=== PATIENT | female | born 1990 | race Two or more races ===

== ENCOUNTER 2024-06-21 21:32 | Inpatient (IN) | payer OTHER ==
[2024-06-22 00:21] VITALS: BMI 16.6
[2024-06-22] MEDS ORDERED: BENZONATATE 200 MG CAPSULE PO PRN (00:27)
[2024-06-22] MEDS ORDERED: cloNIDine HCL 0.1 MG TABLET PO PRN (00:27)
[2024-06-22] MEDS ORDERED: LOPERAMIDE HCL 2 MG CAPSULE PO PRN (00:27)
[2024-06-22] MEDS ORDERED: MAG HYDROX/AL HYDROX/SIMETH 30 ML UNIT-DOSE CUP PO PRN (00:27)
[2024-06-22] MEDS ORDERED: METHOCARBAMOL 500 MG TABLET PO PRN (00:27)
[2024-06-22] MEDS ORDERED: MAGNESIUM HYDROX 2400MG/30ML ORAL SUSPENSION 30 ML CUP PO PRN (00:27)
[2024-06-22] MEDS ORDERED: ACETAMINOPHEN 325 MG TABLET (FP) PO PRN (00:27)
[2024-06-22] MEDS ORDERED: hydrOXYzine PAMOATE 25 MG CAPSULE (FP) PO PRN (00:27)
[2024-06-22] MEDS ORDERED: NICOTINE POLACRILEX 4 MG GUM BUC PRN (00:27)
[2024-06-22] MEDS ORDERED: ONDANSETRON *ODT* 4 MG TABLET SL PRN (00:27)
[2024-06-22] MEDS ORDERED: BENZOCAINE/MENTHOL (CHLORASEPTIC ) LOZENGE MM PRN (00:27)
[2024-06-22] MEDS ORDERED: IBUPROFEN 400 MG TABLET (FP) PO PRN (00:27)
[2024-06-22] MEDS ORDERED: BISMUTH SUBSALICYLATE 524 MG/30 ML PO PRN (00:27)
[2024-06-22] MEDS ORDERED: NALOXONE (NARCAN) HCL 4 MG/0.1 ML SPRAY NS PRN (00:27)
[2024-06-22] MEDS ORDERED: diazePAM 5 MG TABLET PO PRN (00:27)
[2024-06-22] MEDS ORDERED: DICYCLOMINE HCL 10 MG CAPSULE PO PRN (00:27)
[2024-06-22] MEDS ORDERED: guaiFENesin 600 MG TABLET.ER (FP) PO PRN (00:27)
[2024-06-22] MEDS ORDERED: POLYETHYLENE GLYCOL (HEALTHYLAX) 3350 17 GM PACKET PO PRN (00:27)
[2024-06-22] MEDS ORDERED: IBUPROFEN 600 MG TABLET (FP) PO ONE (00:36)
[2024-06-22] MEDS ORDERED: methaDONE HCL 10 MG TABLET (FOR DETOX USE ONLY) ONE (00:38)
[2024-06-22 03:23] VITALS: RESP 16
[2024-06-22] MEDS: methaDONE HCL 10 MG TABLET (FOR DETOX USE ONLY) PO ONE (03:29)
[2024-06-22] MEDS: diazePAM 5 MG TABLET PO SCH (05:53)
[2024-06-22 09:45] VITALS: BP 118/65; PULSE 85; TEMP 97.5
[2024-06-22] MEDS: SULFAMETHOXAZOLE/TRIMETHOPRIM 800MG/160MG D.S. TABLET PO SCH (09:59)
[2024-06-22] MEDS: PRENATAL VITAMINS W/ FOLIC ACID TABLET (FP) PO SCH (09:59)
[2024-06-22] MEDS: IBUPROFEN 600 MG TABLET (FP) PO PRN (10:01)
[2024-06-22] MEDS: NICOTINE 14 MG/24 HOURS TOPICAL PATCH TD SCH (10:05)
[2024-06-22] MEDS ORDERED: MELATONIN 5 MG TABLETS PO SCH (22:00)
[2024-06-22] MEDS ORDERED: THIAMINE 100 MG TABLET PO SCH (22:00)
[2024-06-23] MEDS ORDERED: diazePAM 5 MG TABLET PO SCH (06:00)
[2024-06-24] MEDS ORDERED: diazePAM 5 MG TABLET PO SCH (06:00)
[2024-06-24] MEDS ORDERED: methaDONE HCL 10 MG TABLET (FOR DETOX USE ONLY) PO ONE (10:00)
[2024-06-25] MEDS ORDERED: diazePAM 5 MG TABLET PO ONE (06:00)
[2024-06-26] MEDS ORDERED: methaDONE HCL 10 MG TABLET (FOR DETOX USE ONLY) PO ONE (10:00)
== END 2024-06-22 11:20 | disposition left against medical advice (07) | DRG 770 ==
LOC: YASAS 21:32 → Y6N 06-22 02:09
PROVIDERS: ADMIT Allergy & Immunology; ATTEND Surgery
PROC: HZ2ZZZZ Detoxification Services for Substance Abuse Treatment (ICD-10-PCS; principal; 2024-06-22)
DX: F11.23 Opioid dependence with withdrawal (principal); F10.230 Alcohol dependence with withdrawal, uncomplicated; F13.230 Sedative, hypnotic or anxiolytic dependence with withdrawal, uncomplicated; F14.20 Cocaine dependence, uncomplicated; F17.210 Nicotine dependence, cigarettes, uncomplicated; Z91.199 Patient's noncompliance with other medical treatment and regimen due to unspecified reason
CPT/HCPCS: 80305; 80307; 81025; 93005; 93010